=== PATIENT | male | born 1985 | race Caucasian/White ===

== ENCOUNTER 2019-09-13 10:40 | Outpatient (CLI) | payer OTHER ==
[~2019-09-13] VITALS: Ht 182.9 cm; Wt 161.0 kg
[~2019-09-13 10:40] MED LIST: ANTIVERT25 M1 PO; BUCALSEP SPRAY30 ML MM; DOLOGESIC CAPLE1 TAB PO
[2019-09-13] MEDS ORDERED: PEPCID AC20 MG (11:11)
[2019-09-13] MEDS ORDERED: VOLTAREN100 GM (11:11)
[2019-09-13] MEDS ORDERED: OMEPRAZOLE MAGN20 MG (11:12)
== END 2019-09-13 11:25 | disposition home or self-care (01) ==
LOC: OFIC 805 10:40
PROVIDERS: ATTEND Otolaryngology
DX: R04.0 Epistaxis (principal); R09.81 Nasal congestion; G47.33 Obstructive sleep apnea (adult) (pediatric)

== ENCOUNTER 2019-10-11 09:51 | Outpatient (CLI) | payer OTHER ==
[~2019-10-11 09:51] MED LIST changes: +OMEPRAZOLE MAGN20 MG; +PEPCID AC20 MG; +VOLTAREN100 GM
== END 2019-10-11 18:59 | disposition home or self-care (01) ==
LOC: OFIC 805 09:51
PROVIDERS: ATTEND Otolaryngology
DX: R04.0 Epistaxis (principal); G47.33 Obstructive sleep apnea (adult) (pediatric); R09.81 Nasal congestion

== ENCOUNTER 2022-12-06 11:57 | Outpatient (CLI) | payer OTHER | END 2022-12-06 11:59 | disposition home or self-care (01) | LOC: SONOGRAMA 11:57 | PROVIDERS: ATTEND Pathology Anatomic Pathology & Clinical Pathology | DX: D36.0 Benign neoplasm of lymph nodes (principal) ==